=== PATIENT | female | born 1980 | race Caucasian/White ===

== ENCOUNTER 2016-09-20 19:53 | Emergency (ER) | payer MEDICAID ==
[~2016-09-20] VITALS: Ht 162.6 cm; Wt 92.5 kg
[~2016-09-20 19:53] MED LIST: ALEN10TA6 PO; ASPI81TA2 PO; CAT.2 PO; CYM30 PO; DOCU-144 PO; FERR-57 PO; FURO20TA4 PO; GLU500 PO; IBUP-1017 PO; LEFL20TA17 PO; LEVO250T20 PO; LOSA50TA3 PO; MELO15TA13 PO; MOEX15TA2 PO; NIFE90TA48 PO; PIRF267C PO; PLA200 PO; PRED5TAB PO; SIMV40TA5 PO; TRAM50TA92 PO
[2016-09-20 19:58] VITALS: BP 126/95; PULSE 92; RESP 18; TEMP 98.7; O2SAT 98
--- NOTE | 2016-09-20 20:15 | NUR ---
Placed in room 07 . Placed on vp packaging, blood pressure machine and pulse oximeter. To gown for exam. Side rails up. Report given to ROMY Garrido.
--- NOTE | 2016-09-20 20:16 | NUR ---
ER at bedside examining patient.
--- NOTE | 2016-09-20 20:17 | NUR ---
Pt brought by self,A&Ox4, pt c/o bodyaches, arnaldo ear pain, nose congestion and diaphoresis, pt has taking medications for flu but symptoms not improving, skin pink and warm,no chest retractions noted, cap refill <3.
[2016-09-20 21:35] VITALS: BP 126/95; PULSE 92; RESP 18; TEMP 98.7; O2SAT 98
--- NOTE | 2016-09-20 21:35 | NUR ---
Patient given written and verbal discharge instructions and verbalizes understanding. ER MD discussed with patient the results and treatment provided. Given copies of tests performed in ER. Patient in stable condition. ID arm band removed. Rx of Tylenol 3 given. Patient educated on pain management and to follow up with PMD. Pain Scale 2/10 tolerable for pt. Opportunity for questions provided and answered.
== END 2016-09-20 21:35 | disposition home or self-care (01) ==
LOC: SED 19:53
DX: B34.9 Viral infection, unspecified (principal); I10 Essential (primary) hypertension; G43.909 Migraine, unspecified, not intractable, without status migrainosus; Z88.5 Allergy status to narcotic agent
CPT/HCPCS: 36415; 86710; 99284

== ENCOUNTER 2017-06-26 10:39 | Emergency (ER) | payer MEDICAID ==
[~2017-06-26] VITALS: Ht 162.6 cm; Wt 103.4 kg
[~2017-06-26 10:39] MED LIST changes: -ALEN10TA6 PO; -ASPI81TA2 PO; -CAT.2 PO; -CYM30 PO; -FURO20TA4 PO; -GLU500 PO; -LEFL20TA17 PO; -LOSA50TA3 PO; -MELO15TA13 PO; -MOEX15TA2 PO; -NIFE90TA48 PO; -PIRF267C PO; -PLA200 PO; -PRED5TAB PO; -SIMV40TA5 PO; -TRAM50TA92 PO
[2017-06-26 10:40] VITALS: BP_SYST 118
--- NOTE | 2017-06-26 11:45 | NUR ---
Patient called for nurse while in waiting room reporting that she had a worsening headache. States she feels like she might pass out. Patient appears tremulous with good color, is responding approprietely. Patient refused repeat VS, states that she does not need her VS taken again. I advised the patient that she would get a bed when one is available, left in waiting rm. Patient does not appear to be in acute distress.
--- NOTE | 2017-06-26 11:56 | NUR ---
Patient to ER bed 5 to gown for evaluation. Side rails up. Report given to Radhika STANTON.
--- NOTE | 2017-06-26 12:00 | NUR ---
Pt brought by self, A&Ox4, pt c/o fever, chills, sore throat and bodyaches, denies N/V, denies chest pain, ambulatory, respirations even and unlabored, VS WNL.
[2017-06-26] MEDS ORDERED: KETOROLAC TROMETHAMINE 30 MG VIAL IVP ONE (12:15)
[2017-06-26] MEDS ORDERED: ONDANSETRON HCL 4 MG/2 ML VIAL IVP ONE (12:15)
[2017-06-26] MEDS ORDERED: NACL 0.9% 1,000 ML IV ONE (12:15)
--- NOTE | 2017-06-26 12:55 | NUR ---
Medication administered. Pt tolerated well. No adverse reactions noted.
[2017-06-26 12:58] LABS: BILIRUBIN,URINE NEGATIVE (NEGATIVE); CLARITY/URINE CLEAR (CLEAR); COLOR,URINE YELLOW (YELLOW); GLUCOSE,URINE NEGATIVE (NEGATIVE); KETONES,URINE TRACE (NEGATIVE); LEUKOCYTE ESTERASE ,URINE NEGATIVE (NEGATIVE); NITRITE, URINE NEGATIVE (NEGATIVE); PROTEIN URINE 2+ (NEGATIVE); UROBILINOGEN,URINE 0.2 (0.2-1.0)
[2017-06-26 13:00] LABS: STREPTOCOCCUS A SCREEN (RAPID) POSITIVE (NEGATIVE)
[2017-06-26 13:02] LABS: BLOOD, URINE TRACE (NEGATIVE)
[2017-06-26 13:05] LABS: INFLUENZA A&B ANTIGEN SCREEN NEGATIVE FOR A & B (NEGATIVE)
[2017-06-26 13:24] LABS: BACTERIA,URINE FEW /HPF (None Seen); MUCUS,URINE 1+ /LPF (None Seen); WBC,URINE 0-3 /HPF (0-3)
--- NOTE | 2017-06-26 13:50 | NUR ---
ER at bedside updating patient.
[2017-06-26 13:52] LABS: BASOPHILS % (AUTO) 0.2 % (0.0-2.0); HEMOGLOBIN 10.3 g/dL (12.0-16.0); LYMPHOCYTES # (AUTO) 0.6 K/uL (1.0-5.5); LYMPHOCYTES % (AUTO) 4.1 % (20.5-51.5); MEAN CORPUSCULAR HEMOGLOBIN 24 pg (27-31); MEAN CORPUSCULAR HGB CONC 32 % (32-36); MEAN CORPUSCULAR VOLUME 74 fL (79.0-98.0); MONOCYTES # (AUTO) 0.7 K/uL (0.0-1.0); MONOCYTES % (AUTO) 4.5 % (1.7-9.3); NEUTROPHILS # (AUTO) 13.8 K/uL (1.8-7.7); NEUTROPHILS % (AUTO) 91.2 % (40.0-70.0); PLATELET COUNT (AUTO) 391 K/uL (130-430); RED BLOOD CELL COUNT(AUTO) 4.32 MIL/uL (4.2-6.2); RED CELL DISTRIBUTION WIDTH 15.7 % (9.0-15.0); WHITE BLOOD COUNT (AUTO) 15.1 K/uL (4.8-10.8)
[2017-06-26 13:55] LABS: CALCIUM 8.8 mg/dL (8.4-11.0); CREATININE 0.84 mg/dL (0.55-1.30)
[2017-06-26 14:00] LABS: ALBUMIN 3.6 g/dL (3.4-4.8); TOTAL BILIRUBIN 0.5 mg/dL (0.0-1.0)
[2017-06-26] MEDS ORDERED: PENICILLIN G BENZATHINE 1.2 MMU/2 ML SYR IM ONE (14:00)
[2017-06-26] MEDS ORDERED: HYDROmorphone 1 MG INJ. 1 MG/ML AMPUL IVP ONE (14:15)
--- NOTE | 2017-06-26 14:35 | NUR ---
Medication administered. Pt tolerated well. No adverse reactions noted
--- NOTE | 2017-06-26 15:05 | NUR ---
Patient given written and verbal discharge instructions and verbalizes understanding. ER MD discussed with patient the results and treatment provided. Patient in stable condition. ID arm band removed. Rx of Prednisone given. Patient educated on pain management and to follow up with PMD. Pain Scale 0/10. Opportunity for questions provided and answered. Patient is waiting in bed with IV finishing. Father is enroute.
--- NOTE | 2017-06-26 15:39 | NUR ---
Patient's father is her to give her a ride home. IV DC with cath intact. Patient discharged home.
[2017-06-26 15:41] VITALS: BP_SYST 121
== END 2017-06-26 15:39 | disposition home or self-care (01) ==
LOC: SED 10:39
DX: J02.0 Streptococcal pharyngitis (principal); D72.829 Elevated white blood cell count, unspecified; G43.909 Migraine, unspecified, not intractable, without status migrainosus; I10 Essential (primary) hypertension; Z88.5 Allergy status to narcotic agent
CPT/HCPCS: 36415; 71010; 80053; 81000; 81025; 83605; 83690; 85025; 86403; 86710; 87040; 96361; 96372; 96374; 96375; 99285; J0561; J1170; J1885; J2405; J7030

== ENCOUNTER 2017-08-09 11:45 | Emergency (ER) | payer MEDICAID ==
[~2017-08-09] VITALS: Ht 162.6 cm; Wt 99.8 kg
[2017-08-09 12:07] VITALS: BP_SYST 157
[2017-08-09 12:37] LABS: BASOPHILS # (AUTO) 0.1 K/uL (0.0-0.2); BASOPHILS % (AUTO) 0.6 % (0.0-2.0); EOSINOPHILS % (AUTO) 0.4 % (0.0-4.0); HEMOGLOBIN 11.1 g/dL (12.0-16.0); LYMPHOCYTES # (AUTO) 0.8 K/uL (1.0-5.5); MEAN CORPUSCULAR HEMOGLOBIN 23 pg (27-31); MEAN CORPUSCULAR HGB CONC 32 % (32-36); MEAN CORPUSCULAR VOLUME 73 fL (79.0-98.0); MONOCYTES # (AUTO) 0.3 K/uL (0.0-1.0); MONOCYTES % (AUTO) 3.4 % (1.7-9.3); NEUTROPHILS # (AUTO) 7.2 K/uL (1.8-7.7); NEUTROPHILS % (AUTO) 86.6 % (40.0-70.0); PLATELET COUNT (AUTO) 470 K/uL (130-430); RED BLOOD CELL COUNT(AUTO) 4.78 MIL/uL (4.2-6.2); RED CELL DISTRIBUTION WIDTH 16.3 % (9.0-15.0); WHITE BLOOD COUNT (AUTO) 8.4 K/uL (4.8-10.8)
[2017-08-09 12:57] LABS: CALCIUM 8.9 mg/dL (8.4-11.0); CREATININE 0.77 mg/dL (0.55-1.30); POTASSIUM 3.9 mmol/L (3.5-5.1)
[2017-08-09 13:01] LABS: PROTHROMBIN TIME 9.9 SECS (9.5-12.5)
[2017-08-09 13:02] LABS: ALBUMIN 3.8 g/dL (3.4-4.8); TOTAL BILIRUBIN 0.6 mg/dL (0.0-1.0)
[2017-08-09 18:27] VITALS: BP_SYST 157
== END 2017-08-09 18:27 | disposition home or self-care (01) ==
LOC: SED 11:45
DX: K52.9 Noninfective gastroenteritis and colitis, unspecified (principal); J31.0 Chronic rhinitis; B34.9 Viral infection, unspecified; I10 Essential (primary) hypertension; G43.909 Migraine, unspecified, not intractable, without status migrainosus; Z88.5 Allergy status to narcotic agent; Z79.899 Other long term (current) drug therapy
CPT/HCPCS: 36415; 80053; 83690-TC; 85025; 85610-TC; 85730-TC; 99284

== ENCOUNTER 2019-06-20 07:51 | Emergency (ER) | payer MEDICAID ==
[~2019-06-20] VITALS: Ht 162.6 cm; Wt 111.1 kg
[2019-06-20 07:51] VITALS: BP_SYST 149
[~2019-06-20 07:51] MED LIST changes: +LEVO250T2 PO; -LEVO250T20 PO
--- NOTE | 2019-06-20 07:51 | NUR ---
BROUGHT BACK TO BED #8 AND TRIAGED, REPORT GIVEN TO YURY
[2019-06-20] MEDS ORDERED: DEXAMETHASONE SOD PHOSPHATE 10 MG/ML VIAL IM ONE (08:15)
[2019-06-20] MEDS ORDERED: KETOROLAC TROMETHAMINE 60 MG/2 ML VIAL IM ONE (08:15)
--- NOTE | 2019-06-20 08:15 | NUR ---
ER Dr. Almazan at bedside examining patient.
--- NOTE | 2019-06-20 08:35 | NUR ---
Patient presented to ER C/O flu symptoms. Patient A&Ox4, afebrile, skin pink and warm, ambulatory to ER. Patient C/O sore throat, difficulty swallowing, congestion, and body aches. Patient states body ache pain 10/10, denies N/V/D. Patient states health HX includes tubal ligation.
[2019-06-20 08:41] LABS: STREPTOCOCCUS A SCREEN (RAPID) POSITIVE (NEGATIVE)
--- NOTE | 2019-06-20 09:09 | NUR ---
Patient given written and verbal discharge instructions and verbalizes understanding. ER MD discussed with patient the results and treatment provided. Patient in stable condition. ID arm band removed. Rx of Lomotil given. Patient educated on pain management and to follow up with PMD. Pain Scale 0/10. Opportunity for questions provided and answered.
[2019-06-20 09:10] VITALS: BP_SYST 149
[2019-06-20 09:18] LABS: MONOTEST NEGATIVE (NEGATIVE)
== END 2019-06-20 09:09 | disposition home or self-care (01) ==
LOC: SED 07:51
DX: J02.0 Streptococcal pharyngitis (principal); I10 Essential (primary) hypertension; Z88.5 Allergy status to narcotic agent; Z79.899 Other long term (current) drug therapy
CPT/HCPCS: 36415; 86308; 86403; 96372; 99283; J1100; J1885

== ENCOUNTER 2020-05-25 18:32 | Emergency (ER) | payer MEDICAID ==
[~2020-05-25] VITALS: Ht 162.6 cm; Wt 113.4 kg
[2020-05-25 18:36] VITALS: BP_SYST 159
--- NOTE | 2020-05-25 18:40 | NUR ---
Placed in room 03. Placed on core setter, blood pressure machine, and pulse oximeter. To gown for exam. Side rails up.
--- NOTE | 2020-05-25 18:50 | NUR ---
ER Dr. Almazan at bedside examining patient.
--- NOTE | 2020-05-25 18:54 | NUR ---
Patient ambulates to ER bed 03 with c/o intermittent 7/10 headache, blurry vision, and high blood pressure. Took Excedrin x 6 hours ago prior to arrival with no pain relief. Reports SBP 180s at home today. Patient also reports weight gain of 50 lbs over the last 1.5 years. She also states that she was prescribed blood pressure medications at some point but is unable to recall name of medication. She has not seen PCP in > 1 year for follow up for S/S. Patient is resting comfortably on gurney with gown and monitoring and evaluation advisor placed. Will continue to monitor.
[2020-05-25] MEDS ORDERED: cloNIDine HCL 0.1 MG TABLET PO ONE ×2 (19:00→22:00)
[2020-05-25] MEDS ORDERED: IBUPROFEN 600 MG TABLET PO ONE (19:00)
--- NOTE | 2020-05-25 19:12 | NUR ---
Report given to ROMY Davis, who will continue to carry out care until disposition.
--- NOTE | 2020-05-25 19:16 | NUR ---
received report from ROMY Hastings for continuation of care.
--- NOTE | 2020-05-25 19:27 | NUR ---
patients blood pressure 158/91. md aware.
--- NOTE | 2020-05-25 20:40 | NUR ---
PT STATES HEADACHE IS STILL AT A 6 OUT OF 10 & IS NAUSEOUS. AWARE.
--- NOTE | 2020-05-25 20:45 | NUR ---
ER Dr. LOWE at bedside examining patient.
[2020-05-25] MEDS ORDERED: DIPHENHYDRAMINE HCL 25 MG CAPSULE PO ONE (21:00)
[2020-05-25] MEDS ORDERED: METOCLOPRAMIDE HCL 10 MG TABLET PO ONE (21:00)
--- NOTE | 2020-05-25 21:02 | NUR ---
pt refused benadryl. aware.
--- NOTE | 2020-05-25 22:11 | NUR ---
pt medicated per md orders. pt tolerated well. BP intervals set to retake every 15mins.
--- NOTE | 2020-05-25 22:40 | NUR ---
pt speaking with dr. hall.
--- NOTE | 2020-05-25 22:48 | NUR ---
spoke with lab to come draw patient.
--- NOTE | 2020-05-25 22:50 | NUR ---
LAB AT BEDSIDE DRAWING LABS.
[2020-05-25 23:14] LABS: BASOPHILS % (AUTO) 0.5 % (0.0-2.0); EOSINOPHILS # (AUTO) 0.1 K/uL (0.0-0.4); EOSINOPHILS % (AUTO) 1.4 % (0.0-4.0); HEMATOCRIT 29.8 % (36-48); HEMOGLOBIN 9.5 g/dL (12.0-16.0); LYMPHOCYTES # (AUTO) 2.6 K/uL (1.0-5.5); LYMPHOCYTES % (AUTO) 29.5 % (20.5-51.5); MEAN CORPUSCULAR HEMOGLOBIN 23 pg (27-31); MEAN CORPUSCULAR HGB CONC 32 % (32-36); MEAN CORPUSCULAR VOLUME 73 fL (79.0-98.0); MONOCYTES # (AUTO) 0.7 K/uL (0.0-1.0); MONOCYTES % (AUTO) 8.3 % (1.7-9.3); NEUTROPHILS # (AUTO) 5.2 K/uL (1.8-7.7); NEUTROPHILS % (AUTO) 60.3 % (40.0-70.0); PLATELET COUNT (AUTO) 410 K/uL (130-430); RED BLOOD CELL COUNT(AUTO) 4.11 MIL/uL (4.2-6.2); RED CELL DISTRIBUTION WIDTH 17.6 % (9.0-15.0); WHITE BLOOD COUNT (AUTO) 8.7 K/uL (4.8-10.8)
[2020-05-25 23:22] LABS: CALCIUM 8.2 mg/dL (8.4-11.0); CREATININE 0.68 mg/dL (0.55-1.30); POTASSIUM 3.8 mmol/L (3.5-5.1)
[2020-05-25 23:29] LABS: ALBUMIN 3.1 g/dL (3.4-4.8); TOTAL BILIRUBIN 0.1 mg/dL (0.0-1.0)
[2020-05-25 23:50] VITALS: BP_SYST 112
--- NOTE | 2020-05-25 23:50 | NUR ---
Patient given written and verbal discharge instructions and verbalizes understanding. ER MD discussed with patient the results and treatment provided. Patient in stable condition. ID arm band removed. Rx of hydrochlorothiazide given. Patient educated on pain management and to follow up with PMD. Pain Scale 2/10. Opportunity for questions provided and answered. Medication side effect fact sheet provided.
== END 2020-05-25 23:50 | disposition home or self-care (01) ==
LOC: SED 18:32
DX: I10 Essential (primary) hypertension (principal); G43.909 Migraine, unspecified, not intractable, without status migrainosus; Z90.49 Acquired absence of other specified parts of digestive tract; Z79.899 Other long term (current) drug therapy; Z88.6 Allergy status to analgesic agent
CPT/HCPCS: 36415; 80053; 85025; 99285; J8597; Q0163

== ENCOUNTER 2020-12-09 10:35 | Emergency (ER) | payer MEDICAID ==
[~2020-12-09] VITALS: Ht 162.6 cm; Wt 111.1 kg
[2020-12-09 10:35] VITALS: BP_SYST 179
[2020-12-09] MEDS: DECADRON 4 MG TABLET PO ONE (11:10)
[2020-12-09 11:18] LABS: STREPTOCOCCUS A SCREEN (RAPID) NEGATIVE (NEGATIVE)
[2020-12-09] MEDS: IBUPROFEN 600 MG TABLET PO ONE (11:40)
[2020-12-09] MEDS: HYDROcodone/ACETAMIN 5-325 MG TAB (NORCO/ VICODIN) PO ONE (11:40)
[2020-12-09] MEDS ORDERED: IBUPROFEN 800 MG TABLET ONE (11:44)
[2020-12-09 12:15] LABS: BILIRUBIN,URINE NEGATIVE (NEGATIVE); COLOR,URINE YELLOW (YELLOW); GLUCOSE,URINE NEGATIVE (NEGATIVE); KETONES,URINE NEGATIVE (NEGATIVE); LEUKOCYTE ESTERASE ,URINE 1+ (NEGATIVE); NITRITE, URINE NEGATIVE (NEGATIVE); PH,URINE 7.5 (5.0-8.0); PROTEIN URINE NEGATIVE (NEGATIVE)
[2020-12-09 12:16] LABS: BLOOD, URINE TRACE (NEGATIVE); CLARITY/URINE HAZY (CLEAR)
[2020-12-09] MEDS ORDERED: IBUP-1969 PO (12:21)
[2020-12-09 12:30] LABS: BACTERIA,URINE FEW /HPF (None Seen); RBC,URINE 0-3 /HPF (0-3)
[2020-12-09 12:31] VITALS: BP_SYST 115
[2020-12-09 12:31] LABS: MUCUS,URINE 1+ /LPF (None Seen)
[2020-12-09] MEDS ORDERED: HYDR-3917 PO (12:32)
[2020-12-09] MEDS ORDERED: ONDA-8 TL (12:36)
== END 2020-12-09 12:37 | disposition home or self-care (01) ==
LOC: SED 10:35
DX: B34.9 Viral infection, unspecified (principal); J02.9 Acute pharyngitis, unspecified; I10 Essential (primary) hypertension; Z79.899 Other long term (current) drug therapy; Z88.6 Allergy status to analgesic agent; Z20.822 Contact with and (suspected) exposure to COVID-19
CPT/HCPCS: 36415; 81000; 86403; 87081; 87086; 87426; 99283; J8540

== ENCOUNTER 2021-05-23 23:04 | Emergency (ER) | payer MEDICAID ==
[~2021-05-23] VITALS: Ht 162.6 cm; Wt 111.1 kg
[~2021-05-23 23:04] MED LIST changes: +HYDR-3917 PO; +IBUP-1969 PO; +ONDA-8 TL
[2021-05-23 23:11] VITALS: BP_SYST 162
--- NOTE | 2021-05-23 23:25 | NUR ---
Patient BIB by family from home. C/O abdominal pain x today. Patient reported, had abdominal pain, nausea, and diarrhea, A/O,X4, mid abdominal pain, pain rate 7/10.
--- NOTE | 2021-05-23 23:27 | NUR ---
ER Dr. Brown at bedside examining patient.
[2021-05-23] MEDS ORDERED: ONDANSETRON HCL 4 MG/2 ML VIAL IVP ONE (23:45)
[2021-05-23] MEDS ORDERED: MORPHINE 2 MG/ML INJ. SYRINGE IVP ONE (23:45)
[2021-05-23] MEDS ORDERED: NACL 0.9% 1,000 ML IV ONE (23:45)
--- NOTE | 2021-05-24 00:07 | NUR ---
Returned from radiology, back to [facility].
[2021-05-24] MEDS ORDERED: ONDA-8 TL (00:25)
[2021-05-24] MEDS ORDERED: PRO40 PO (00:25)
[2021-05-24] MEDS ORDERED: PANTOPRAZOLE SODIUM 40 MG/VIAL (PROTONIX) IVP ONE (00:30)
[2021-05-24 00:36] LABS: ALBUMIN 3.4 g/dL (3.4-4.8); CALCIUM 8.9 mg/dL (8.4-11.0); CREATININE 0.81 mg/dL (0.55-1.30); POTASSIUM 3.7 mmol/L (3.5-5.1); TOTAL BILIRUBIN 0.3 mg/dL (0.0-1.0)
[2021-05-24 00:45] LABS: BASOPHILS % (AUTO) 0.5 % (0.0-2.0); EOSINOPHILS % (AUTO) 0.1 % (0.0-4.0); HEMATOCRIT 33.8 % (36-48); HEMOGLOBIN 10.9 g/dL (12.0-16.0); LYMPHOCYTES # (AUTO) 0.9 K/uL (1.0-5.5); LYMPHOCYTES % (AUTO) 13.1 % (20.5-51.5); MEAN CORPUSCULAR HEMOGLOBIN 24 pg (27-31); MEAN CORPUSCULAR HGB CONC 32 % (32-36); MEAN CORPUSCULAR VOLUME 75 fL (79.0-98.0); MONOCYTES # (AUTO) 0.6 K/uL (0.0-1.0); MONOCYTES % (AUTO) 9.6 % (1.7-9.3); NEUTROPHILS # (AUTO) 5.2 K/uL (1.8-7.7); NEUTROPHILS % (AUTO) 76.7 % (40.0-70.0); PLATELET COUNT (AUTO) 412 K/uL (130-430); RED BLOOD CELL COUNT(AUTO) 4.49 MIL/uL (4.2-6.2); RED CELL DISTRIBUTION WIDTH 16.4 % (9.0-15.0); WHITE BLOOD COUNT (AUTO) 6.8 K/uL (4.8-10.8)
[2021-05-24 00:51] LABS: BILIRUBIN,URINE NEGATIVE (NEGATIVE); CLARITY/URINE CLEAR (CLEAR); COLOR,URINE YELLOW (YELLOW); GLUCOSE,URINE NEGATIVE (NEGATIVE); KETONES,URINE NEGATIVE (NEGATIVE); LEUKOCYTE ESTERASE ,URINE NEGATIVE (NEGATIVE); NITRITE, URINE NEGATIVE (NEGATIVE); PH,URINE 5.5 (5.0-8.0); PROTEIN URINE NEGATIVE (NEGATIVE); UROBILINOGEN,URINE 0.2 (0.2-1.0)
[2021-05-24 00:55] LABS: BLOOD, URINE TRACE (NEGATIVE)
--- NOTE | 2021-05-24 01:14 | NUR ---
Patient resting quietly. No acute distress noted. Vital signs within normal range.
[2021-05-24 01:19] LABS: BACTERIA,URINE FEW /HPF (None Seen); WBC,URINE 0-3 /HPF (0-3)
[2021-05-24 01:51] VITALS: BP_SYST 133
--- NOTE | 2021-05-24 01:51 | NUR ---
Patient given written and verbal discharge instructions and verbalizes understanding. ER MD discussed with patient the results and treatment provided. Patient in stable condition. ID arm band removed. IV catheter removed intact and dressing applied, no active bleeding. Rx of Zofran and Protonix given. Patient educated on pain management and to follow up with PMD. Pain Scale 1/10. Opportunity for questions provided and answered. Medication side effect fact sheet provided.
== END 2021-05-24 01:51 | disposition home or self-care (01) ==
LOC: SED 23:04
DX: R10.13 Epigastric pain (principal); I10 Essential (primary) hypertension; Z88.5 Allergy status to narcotic agent; Z79.899 Other long term (current) drug therapy
CPT/HCPCS: 36415; 74176; 76376; 80053; 81000; 81025; 83690; 84484; 84703; 85025; 87040; 93005; 96361; 96374; 96375 ×2; 99285; C9113; J2270; J2405; J7030

== ENCOUNTER 2021-07-31 20:31 | Emergency (ER) | payer MEDICAID ==
[~2021-07-31] VITALS: Ht 162.6 cm; Wt 106.1 kg
[~2021-07-31 20:31] MED LIST changes: +PRO40 PO
[2021-07-31 20:42] VITALS: BP_SYST 149
--- NOTE | 2021-07-31 20:45 | NUR ---
Patient to ER bed 05 to gown for evaluation. Side rails up.
--- NOTE | 2021-07-31 20:54 | NUR ---
ER at bedside examining patient.
[2021-07-31] MEDS ORDERED: fentaNYL CITRATE/PF 100 MCG/2 ML AMP IM ONE ×2 (21:00→23:30)
[2021-07-31] MEDS ORDERED: KETOROLAC TROMETHAMINE 60 MG/2 ML VIAL IM ONE (21:00)
--- NOTE | 2021-07-31 21:00 | NUR ---
PT ARRIVED TO ER WITH LOWER BACK PAIN SINCE YESTERDAY NIGHT. 05/16 PAIN CONSTANT. PT TOOK 800MG IBUPROFEN FOR PAIN WITH NO PAIN CONTROL. PT STATES SHE HAS THIS KIND OF PAIN WHEN SHE HAS A UTI. STATES THAT SHE WANTS PAIN RELIEF. A&OX4. -CP, VSS
[2021-07-31 21:17] LABS: BILIRUBIN,URINE NEGATIVE (NEGATIVE); BLOOD, URINE NEGATIVE (NEGATIVE); COLOR,URINE YELLOW (YELLOW); GLUCOSE,URINE NEGATIVE (NEGATIVE); KETONES,URINE NEGATIVE (NEGATIVE); LEUKOCYTE ESTERASE ,URINE NEGATIVE (NEGATIVE); NITRITE, URINE POSITIVE (NEGATIVE); PH,URINE 6.5 (5.0-8.0); PROTEIN URINE NEGATIVE (NEGATIVE); UROBILINOGEN,URINE 0.2 (0.2-1.0)
[2021-07-31 21:19] LABS: BASOPHILS % (AUTO) 0.6 % (0.0-2.0); EOSINOPHILS # (AUTO) 0.1 K/uL (0.0-0.4); HEMATOCRIT 32.8 % (36-48); HEMOGLOBIN 10.5 g/dL (12.0-16.0); LYMPHOCYTES # (AUTO) 0.4 K/uL (1.0-5.5); LYMPHOCYTES % (AUTO) 6.7 % (20.5-51.5); MEAN CORPUSCULAR HEMOGLOBIN 23 pg (27-31); MEAN CORPUSCULAR HGB CONC 32 % (32-36); MEAN CORPUSCULAR VOLUME 72 fL (79.0-98.0); MONOCYTES # (AUTO) 0.6 K/uL (0.0-1.0); NEUTROPHILS # (AUTO) 4.5 K/uL (1.8-7.7); NEUTROPHILS % (AUTO) 80.7 % (40.0-70.0); PLATELET COUNT (AUTO) 355 K/uL (130-430); RED BLOOD CELL COUNT(AUTO) 4.57 MIL/uL (4.2-6.2); RED CELL DISTRIBUTION WIDTH 17.4 % (9.0-15.0); WHITE BLOOD COUNT (AUTO) 5.6 K/uL (4.8-10.8)
[2021-07-31 21:25] LABS: CALCIUM 8.6 mg/dL (8.4-11.0); CREATININE 0.69 mg/dL (0.55-1.30); POTASSIUM 3.8 mmol/L (3.5-5.1)
[2021-07-31 21:31] LABS: CLARITY/URINE HAZY (CLEAR)
[2021-07-31 21:33] LABS: BACTERIA,URINE MODERATE /HPF (None Seen); MUCUS,URINE None Seen /LPF (None Seen); RBC,URINE NONE SEEN /HPF (0-3); WBC,URINE 0-3 /HPF (0-3)
--- NOTE | 2021-07-31 21:36 | NUR ---
PT TAKEN FOR A ULTRA SOUND BY US SNEHA TECH
[2021-07-31 21:37] LABS: ALBUMIN 3.6 g/dL (3.4-4.8); TOTAL BILIRUBIN 0.2 mg/dL (0.0-1.0)
--- NOTE | 2021-07-31 22:50 | NUR ---
dr hardin bedside performing a pelvic exam.
[2021-07-31] MEDS ORDERED: fentaNYL CITRATE/PF 100 MCG/2 ML AMP ONE (23:23)
[2021-07-31] MEDS ORDERED: fentaNYL CITRATE/PF 100 MCG/2 ML AMP IVP ONE (23:30)
[2021-07-31] MEDS ORDERED: NITR-85 PO (23:42)
[2021-07-31] MEDS ORDERED: ACET1TAB23 PO (23:42)
[2021-07-31 23:56] VITALS: BP_SYST 149
--- NOTE | 2021-07-31 23:57 | NUR ---
Patient given written and verbal discharge instructions and verbalizes understanding. ER MD discussed with patient the results and treatment provided. Patient in stable condition. ID arm band removed. Rx of acetaminophen and codein, macrobid given. Patient educated on pain management and to follow up with PMD. Pain Scale 2/10. Opportunity for questions provided and answered. Medication side effect fact sheet provided.
== END 2021-07-31 23:57 | disposition home or self-care (01) ==
LOC: SED 20:31
DX: N39.0 Urinary tract infection, site not specified (principal); I10 Essential (primary) hypertension; Z88.5 Allergy status to narcotic agent; Z79.899 Other long term (current) drug therapy
CPT/HCPCS: 36415; 76830; 76857; 80053; 81000; 83690; 84702; 85025; 87086; 96372; 99284; J1885; J3010

== ENCOUNTER 2024-02-15 17:05 | Emergency (ER) | payer MEDICAID ==
[~2024-02-15] VITALS: Ht 172.7 cm; Wt 124.7 kg
[~2024-02-15 17:05] MED LIST changes: +NITR-85 PO
[2024-02-15 17:11] VITALS: BP_SYST 151; PULSE 105; RESP 18; TEMP 98.3; O2SAT 98
[2024-02-15] MEDS: NACL 0.9% 1,000 ML IV ONE (18:49)
[2024-02-15 18:52] LABS: HCG,QUAL RESULT NEGATIVE (NEGATIVE)
[2024-02-15] MEDS: KETOROLAC TROMETHAMINE 30 MG VIAL IVP ONE (18:54)
[2024-02-15 18:55] LABS: BILIRUBIN,URINE NEGATIVE (NEGATIVE); CLARITY/URINE CLEAR (CLEAR); COLOR,URINE YELLOW (YELLOW); GLUCOSE,URINE NEGATIVE (NEGATIVE); KETONES,URINE NEGATIVE (NEGATIVE); LEUKOCYTE ESTERASE ,URINE NEGATIVE (NEGATIVE); NITRITE, URINE NEGATIVE (NEGATIVE); PROTEIN URINE NEGATIVE (NEGATIVE); UROBILINOGEN,URINE 0.2 (0.2-1.0)
[2024-02-15 19:18] LABS: BASOPHILS # (AUTO) 0.1 K/uL (0.0-0.2); BASOPHILS % (AUTO) 0.9 % (0.0-2.0); EOSINOPHILS # (AUTO) 0.1 K/uL (0.0-0.4); HEMATOCRIT 29.6 % (36-48); HEMOGLOBIN 9.3 g/dL (12.0-16.0); LYMPHOCYTES # (AUTO) 2.3 K/uL (1.0-5.5); LYMPHOCYTES % (AUTO) 31.6 % (20.5-51.5); MEAN CORPUSCULAR HEMOGLOBIN 20 pg (27-31); MEAN CORPUSCULAR HGB CONC 31 % (32-36); MEAN CORPUSCULAR VOLUME 65 fL (79.0-98.0); MONOCYTES # (AUTO) 0.5 K/uL (0.0-1.0); MONOCYTES % (AUTO) 7.6 % (1.7-9.3); NEUTROPHILS # (AUTO) 4.2 K/uL (1.8-7.7); NEUTROPHILS % (AUTO) 57.9 % (40.0-70.0); PLATELET COUNT (AUTO) 442 K/uL (130-430); RED BLOOD CELL COUNT(AUTO) 4.56 MIL/uL (4.2-6.2); RED CELL DISTRIBUTION WIDTH 18.5 % (9.0-15.0); WHITE BLOOD COUNT (AUTO) 7.2 K/uL (4.8-10.8)
[2024-02-15 19:20] LABS: BLOOD, URINE TRACE (NEGATIVE)
[2024-02-15 19:51] LABS: ALBUMIN 3.4 g/dL (3.4-4.8); BILIRUBIN,DIRECT 0.1 mg/dL (0.0-0.3); CALCIUM 9.1 mg/dL (8.4-11.0); CREATININE 0.75 mg/dL (0.55-1.30); POTASSIUM 3.9 mmol/L (3.5-5.1); TOTAL BILIRUBIN 0.2 mg/dL (0.0-1.0); TOTAL PROTEIN, SERUM 7.9 g/dL (6.4-8.3)
[2024-02-15 20:10] LABS: BACTERIA,URINE RARE /HPF (None Seen); MUCUS,URINE None Seen /LPF (None Seen); RBC,URINE 0-3 /HPF (0-3); WBC,URINE 0-3 /HPF (0-3)
[2024-02-15 20:39] LABS: ANISOCYTOSIS 1+; HYPOCHROMASIA 2+; OVALOCYTES MODERATE; STOMATOCYTES FEW; TARGET CELLS FEW
[2024-02-15] MEDS ORDERED: DICY-14 PO (21:43)
[2024-02-15 21:59] VITALS: BP_SYST 133; PULSE 85; RESP 18; TEMP 97.8; O2SAT 99
== END 2024-02-15 22:00 | disposition home or self-care (01) ==
LOC: SED 17:05
DX: R10.9 Unspecified abdominal pain (principal); R42 Dizziness and giddiness; R61 Generalized hyperhidrosis; I10 Essential (primary) hypertension; G43.909 Migraine, unspecified, not intractable, without status migrainosus; Z88.6 Allergy status to analgesic agent; Z79.899 Other long term (current) drug therapy; Z79.2 Long term (current) use of antibiotics
CPT/HCPCS: 99285; 74176; 96374; 96361; 80076; 80048; 81001; 84703; 85025; 36415; 81025; 82948; J1885; J7030; 81000; 81015